=== PATIENT | male | born 1945 | race Caucasian/White ===

== ENCOUNTER 2019-10-14 14:04 | IRF | payer MEDICARE, OTHER, SELFPAY ==
--- NOTE | ~2019-10-14 | XR_ITS ---
EXAMINATION: XR barium swallow modified EXAM DATE: 10/27/2019 11:14 INDICATION: Dysphagia. TECHNIQUE: Modified barium esophagram was performed by myself to administered fluoroscopy, in conjun ction with speech pathologist who administered barium in varying consistencies as per speech patholog ist documentation. This was recorded on tape. The DAP for this procedure was 1.1 Gycm2. FINDINGS: Oral stage: Adequate function. Pharyngeal phase: Small sinus residual.. Laryngeal penetration: None. Aspiration: None. Laryngeal sensitivity: Present. IMPRESSION: Patient tolerated oral feedings in the upright position. Please refer to speech patholo gist findings and specific feeding recommendations. Reviewed, dictated and finalized at location A. IMPRESSION: Patient tolerated oral feedings in the upright position. Please r efer to speech pathologist findings and specific feeding recommendations.
--- NOTE | ~2019-10-14 | XR_ITS ---
EXAMINATION: XR chest 1V portable 10/19/2019 19:04 INDICATION: Shortness of breath PROCEDURE: AP portable chest COMPARISON: No prior studies for comparison. FINDINGS: The lungs are clear. The cardiomediastinal silhouette is within normal limits. There are no pleural effusions. There is no pneumothorax suspected. IMPRESSION: 1: NO ACUTE CARDIOPULMONARY DISEASE. Reviewed, dictated and finalized at location A.
--- NOTE | ~2019-10-14 | CT_ITS ---
EXAMINATION: CT soft tissue neck wo con DATE: 10/18/2019 15:01 INDICATION: Dysphagia. TECHNIQUE: Computed tomography (CT) of the neck was performed without intravenous contrast. Automated exposure control and iterative reconstruction technique were employed. The dose-length product was 5 97.20 mGy-cm. COMPARISON: None FINDINGS: There is ectasia of ascending aorta measuring 4.1 cm. There are no pathologically enlarged lymph nodes. The pharynx and larynx are unremarkable. There is mild mucosal thickening in the paranas al sinuses. The mastoid air cells are normal. The orbits are normal. There is extensive dental diseas e. There is severe cervical spondylosis. IMPRESSION: 1. Extensive dental disease. Reviewed, dictated and finalized at location A.
--- NOTE | ~2019-10-14 | XR_ITS ---
EXAMINATION: XR abdomen/kub 1V EXAM DATE: 10/14/2019 17:08 INDICATION: Check PEG tube placement. TECHNIQUE: Frontal projection(s) of the abdomen for interpretation. There is no prior study for rafael bishop. FINDINGS: PEG tube catheter and balloon anchor projects over the spine just left of midline. There i s contrast within the colon. Nonobstructive bowel gas pattern. There are cholecystectomy clips. Moder ate to severe thoracolumbar spondylosis. There is no organomegaly. IMPRESSION: PEG tube projecting over expected location. If this was recently replaced, ordering exam ination with contrast injected through tube could be obtained to confirm intragastric position. Reviewed, dictated and finalized at location A. ONE BUTTON PASTER IMPRESSION: PEG tube projecting over expected location. If this was recently r eplaced, ordering examination with contrast injected through tube could be obta ined to confirm intragastric position.
--- NOTE | ~2019-10-14 | XR_ITS ---
XR abdomen/kub 1V 10/19/2019 19:04 INDICATION: Nausea TECHNIQUE: KUB COMPARISON: 10/14/2019 FINDINGS: Bowel gas pattern is normal. Moderate lumbar spondylosis. There is a gastric tube in the le ft upper abdomen. There are cholecystectomy clips. There is no evidence of free air, mass, organomega ly, ascites or obstruction. No abnormal calculi are seen. The bones appear intact. Moderate lumbar spondylosis. IMPRESSION: 1: No acute abdominal abnormality identified. Reviewed, dictated and finalized at location A.
--- NOTE | 2019-10-14 15:49 | ADMGEN ---
This patient, Moreno Sanchez, was admitted to [facility] Room 220-02. Patient/family oriented to hospital policies and general routines including ID bracelet, bed and alarms, visiting hours, pain management, procedures, bathroom and other care routines, personal items, smoking policy, room service/diet, and visiting hours. Valuables list has been completed. Information on how to activate the Rapid Response Team has been discussed. Patient/Family are encouraged to report perceived risks to care and to ask questions if they do not understand what they are told or what they should do.
[2019-10-14 16:23] VITALS: BP 140/54; PULSE 54; RESP 18; TEMP 37.2; O2SAT 99
[2019-10-14 16:24] VITALS: BMI 29.0
[2019-10-14] MEDS: LANSOPRAZOLE ORAL SUSP 30 MG/10 ML ORAL.SUSP FEED TUBE (20:18)
[2019-10-14] MEDS: HEPARIN SODIUM 5,000 UNITS/ML VIAL 5000 UNITS SUB-Q (20:19)
[2019-10-14 22:00] VITALS: BP 134/61; PULSE 56; RESP 18; TEMP 36.8; O2SAT 98
--- NOTE | 2019-10-15 03:26 | PC.NURSE ---
Daylight Savings Time For Daylight Savings Time Ending in the Fall - Clocks are moved back. For Daylight Savings Time Beginning in the Spring - Clocks are moved ahead. For [facility], the time of change occurs at 0200 hrs. Time is taken from the tower observer. This entry on the patient's chart recognizes the change in time reflected during documentation. Example: 2 entries for vital signs may be charted for 0200 hrs. Daylight Savings Time For Daylight Savings Time Ending in the Fall - Clocks are moved back. For Daylight Savings Time Beginning in the Spring - Clocks are moved ahead. For [facility], the time of change occurs at 0200 hrs. Time is taken from the tower observer. This entry on the patient's chart recognizes the change in time reflected during documentation. Example: 2 entries for vital signs may be charted for 0200 hrs.
[2019-10-15 05:11] LABS: Basophils Percent Auto 0.5 % (0.2-1.2); Eosinophils Absolute Auto 0.6 K/mm3 (0-0.3); Eosinophils Percent Auto 7.3 % (0-4.4); Hematocrit 39.9 % (42.0-52.0); Hemoglobin 12.8 g/dL (14.0-18.0); Immature Granulocyte Absolute 0.03 K/mm3 (0.00-0.031); Immature Granulocyte Percent A 0.4 % (0-0.5); Lymphocytes Percent Auto 24.1 % (18.3-44.2); Mean Corpuscular HGB Conc 32.1 g/dl (32-36); Mean Corpuscular Hemoglobin 29.4 pg (26-34); Mean Corpuscular Volume 91.5 fl (80-100); Mean Platelet Volume 10.5 fl (7.4-10.4); Monocytes Percent Auto 11.9 % (2.6-8.5); Neutrophils Absolute Auto 4.6 K/mm3 (1.3-6.7); Neutrophils Percent Auto 55.8 % (45.5-73.1); Platelet Count Result 238 k/mm3 (150-375); Red Blood Count 4.36 M/mm3 (4.6-6.20); Red Cell Distribution Width 13.3 % (11.5-14.5); White Blood Count 8.3 K/mm3 (4.5-10.0)
[2019-10-15 05:20] LABS: Blood Urea Nitrogen 11 mg/dL (9-20); Calcium 8.5 mg/dL (8.4-10.2); Carbon Dioxide 33 mmol/L (22-30); Chloride 102 mmol/L (98-107); Estimated CRCL calculation 81 ml/min; Estimated Glomerular Filt Rate > 60; Glucose 96 mg/dL (75-110); Potassium 3.7 mmol/L (3.4-5.0); Sodium 141 mmol/L (137-145)
[2019-10-15] MEDS: HEPARIN SODIUM 5,000 UNITS/ML VIAL 5000 UNITS SUB-Q ×3 (05:40→22:55)
[2019-10-15 06:00] VITALS: BP 123/62; PULSE 56; RESP 17; TEMP 36.3; O2SAT 93
[2019-10-15 07:04] LABS: Glucose Point of Care 118 (65-105)
[2019-10-15] MEDS: DOCUSATE SODIUM LIQ 100 MG/10 ML UDC FEED TUBE (08:58)
[2019-10-15] MEDS: EZETIMIBE 10 MG TABLET FEED TUBE (08:58)
[2019-10-15] MEDS: CLOPIDOGREL BISULFATE 75 MG TABLET FEED TUBE (08:58)
[2019-10-15] MEDS: ASPIRIN 81 MG CHEWABLE TABLET FEED TUBE (08:58)
[2019-10-15] MEDS: polyethylene glycoL 3350 17 GM POWD.PACK FEED TUBE (08:59)
[2019-10-15] MEDS: MULTIVIT W/ IRON, MINERALS 15 ML LIQUID (*BKC) FEED TUBE (08:59)
[2019-10-15] MEDS: lisinopriL 10 MG TABLET FEED TUBE (08:59)
[2019-10-15] MEDS: LANSOPRAZOLE ORAL SUSP 30 MG/10 ML ORAL.SUSP FEED TUBE ×2 (09:00→18:36)
--- NOTE | 2019-10-15 10:00 | WPDREHABHP ---
H&P: HPI History of Present Illness Chief complaint: CVA Narrative: Moreno Sanchez is a 74 year old male HISTORY OF PRESENT ILLNESS: The patient's primary rehab impairment category is stroke The etiologic diagnosis is right-sided cerebrovascular accident. I saw this patient [id number] on October 15, 2019 at 10:00 a.m. in the morning The patient is a 74-year-old white male with a past medical history of hyperlipidemia, atrial fibrillation, coronary artery disease, prior [place], prior stroke with residual left-sided weakness, and hypertension who presented to [facility] on September 27, 2019 with a 3 day history of difficulty swallowing. CT of the head was negative. CT angiogram of the head and neck showed occlusion of the distal right vertebral artery, mild atherosclerotic changes without significant stenosis in the right common carotid as well as bilateral internal carotid arteries. A barium swallow revealed large residual volume within the vallecula with semi solid consistency, a deep laryngeal penetration at the level of the vocal cords with thin liquids concerning for silent aspiration. Carotid ultrasound showed less than 50% stenosis of the internal carotid arteries. Brain MRI showed compromised the diffusion-weighted images. NAWAF was ordered but does since the patient's director labor standards is in service on [facility] the patient was transferred there. TTE revealed no thrombus and no shunt. He underwent PEG tube placement on October 09, 2019 and remains NPO. Neurology reported that moderate aortic atherosclerotic is likely the source of the new CVA even though the MRI was negative. Patient has a history of a prior MRI negative stroke. His hospitalization has been complicated by several comorbid conditions. Neurologist at the patient on new medication for hyperlipidemia a during this hospitalization said this new stroke card on prior statin therapy. The patient has persistent dysphagia requiring PEG tube placement and on October 08 currently he has at a goal and tolerating the tube feeding. During PEG tube placement it was discovered the patient had an ulcerated gastric polyp that was bleeding, the poly was removed and the pathology returned intra mucosal carcinoma. Oncology was consulted and deemed the patient not a candidate for surgical resection. Follow-up to be done in the future for possible and a week O Flick resection. His hypertension is currently controlled. He has persistent bradycardia and is currently on no rate control medications. Cardiology feels it is likely related to obstructive sleep apnea and recommend outpatient polysomnogram. Cardiology also consulted for heart failure with preserved ejection fraction and current treatment is lisinopril and p.r.n. Lasix. He has coronary artery disease at baseline and it is stable on aspirin Plavix Crestor and Zetia. He did experience severe protein calorie malnutrition for which it dietitian was consulted and proper tube feedings were recommended and put in place. Physical examination continues to reveal left-sided weakness dysphagia impaired balance decreased safety awareness and decreased gross motor controlled. DVT prophylaxis with subcutaneous heparin Therapy was initiated at the acute care facility and the patient transferred to us from [facility] in [place] on October 14, 2019 at which time this patient was examined this examiner in detail that will be October 14, 2019 and the 2nd examination was performed today October 15, 2019 the examination performed on October 14, 2019 was at 1:00 a.m. in the afternoon on FALLS OR SURGERIES: The patient has had no major surgeries in the 100 days prior to admission. They had no falls in the past year. They had no falls with injury in the past year. PAST MEDICAL HISTORY: hypercholesterolemia, atrial fibrillation, anginal pain, coronary artery disease, hypertension, gastroesophageal reflux disease, heart attack, transient isc
[2019-10-15 14:40] VITALS: BP 118/56; PULSE 63; RESP 16; TEMP 35.7; O2SAT 98
[2019-10-15] MEDS: ACETAMINOPHEN ELIXIR 325 MG/10.15 ML UDC 650 MG FEED TUBE (18:34)
[2019-10-15 21:24] VITALS: BP 125/54; PULSE 50; RESP 20; TEMP 36.3; O2SAT 96
[2019-10-16 06:00] VITALS: BP 118/65; PULSE 75; RESP 20; TEMP 36.3; O2SAT 98
[2019-10-16] MEDS: HEPARIN SODIUM 5,000 UNITS/ML VIAL 5000 UNITS SUB-Q ×3 (06:44→22:08)
[2019-10-16 07:17] LABS: Glucose Point of Care 116 (65-105)
[2019-10-16] MEDS: CLOPIDOGREL BISULFATE 75 MG TABLET FEED TUBE (08:51)
[2019-10-16] MEDS: ASPIRIN 81 MG CHEWABLE TABLET FEED TUBE (08:51)
[2019-10-16] MEDS: EZETIMIBE 10 MG TABLET FEED TUBE (08:51)
[2019-10-16] MEDS: LANSOPRAZOLE ORAL SUSP 30 MG/10 ML ORAL.SUSP FEED TUBE ×2 (08:52→22:08)
[2019-10-16] MEDS: MULTIVIT W/ IRON, MINERALS 15 ML LIQUID (*BKC) FEED TUBE (08:53)
[2019-10-16] MEDS: lisinopriL 10 MG TABLET FEED TUBE (08:53)
[2019-10-16] MEDS: ACETAMINOPHEN ELIXIR 325 MG/10.15 ML UDC 650 MG FEED TUBE ×2 (08:59→22:42)
--- NOTE | 2019-10-16 11:54 | PCPTNOTE ---
Moreno Sanchez was evaluated for a wheeled walker on 10/16/2019 by this physical therapist business assistant. The wheeled walker will resolve patient's mobility limitations and will be used for ADL's within the home. The patient can safely use the wheeled walker. ?The wheeled walker will resolve the patient?s mobility deficits, including de creased standing balance, decrease endurance and decreased left lower extremity strength.
[2019-10-16 14:00] VITALS: BP 133/75; PULSE 82; RESP 20; TEMP 36.6; O2SAT 96
[2019-10-16 14:07] VITALS: BMI 29.2
--- NOTE | 2019-10-16 15:00 | PCNSR ---
On 10/16/19, the student, Jenny Mckeon, provided care and completed [facility] documentation on this patient. I have reviewed the student's documentation and agree with the findings.
--- NOTE | 2019-10-16 16:38 | RPD ---
INDIVIDUALIZED PLAN OF CARE FOR Moreno Sanchez Brief Synthesis of Pre-Admission Screen, Post-Admission Evaluation and Therapy Evaluations: The patient presents to rehab with right cerebrovascular accident. Comorbidities include hypertension, moderate aortic atherosclerosis, oropharyngeal dysphagia requiring PEG tube placement 10/09/2019, hyperlipidemia, high grade dysplastic gastric polyp, coronary artery disease, gastroesophageal reflux disease, severe protein calorie malnutrition, hypernatremia, benign prostatic hypertrophy, bradycardia. The patient needs physician monitoring and treatment of hypertension, malnutrition, monitoring for adverse reactions to new medications, monitoring for infection, bradycardia and pain control. The patient requires nursing services for frequent neuro checks, anticoagulation therapy, medication management and education, pressure relief and skin care management, monitoring of labs, monitoring vital signs specifically for persistent bradycardia, and fall/safety precautions. Deficits include:ADLs, Balance, Cognition, Endurance, Mobility, Pain Management, ROM, Safety, Strength, Swallowing, Transfers Reconciliation Clerk/Case Management for: Discharge Planning and Patient/Family Counseling Physical Therapy: 5 days per week for 60 minutes. Treatments may include: Therapeutic Exercise, Gait Training, Neuromuscular Re-education, Transfer Training, Community Reintegration, Bed Mobility, Patient/Family Education, Wheelchair Mobility Group Therapy/Concurrent Therapy Rationales: -Improve attention span during functional activities in a distracted environment. -Enhance problem solving and/or adequate judgment skills during functional activities in a distracted environment. -Promote increased safety awareness in a distracted environment to reduce fall risk with functional tasks, transfers, and ambulation to allow a more safe, self-sufficient return to the home environment. -Improve dynamic balance skills to promote safety and independence with functional activities in a distracted environment for maximum gain. Occupational Therapy: 5 days per week for 60 minutes. Treatments may include: Therapeutic Exercise, Therapeutic Activity, Cognitive Training, Self-Care Transfer Training, Community Reintegration, Home Management, Patient/Family Education, Wheelchair Mobility Training, Energy Conservation Training Group Therapy/Concurrent Therapy Rationales: -Allow therapist to observe and teach generalization and carry-over of skills learned in individual therapy. -Enhance problem solving and sequencing skills during therapeutic activities in a distracted environment. -Promote increased safety awareness in a realistic setting to reduce fall risk with functional tasks due to visual and verbal distractions. -Increase functional level with ADLs, ADL transfers and use of adaptive equipment through therapeutic activities with others while promoting safety to allow a more safe, self-sufficient return home. Speech Therapy: 5 days per week for 60 minutes. Treatments may include: Dysphasia Therapy, Speech/Language/Communication Therapy, Cognitive Training, Patient/Family Education Group Therapy/Concurrent Therapy - Rationale: -Allow therapist to observe and teach generalization and carry-over of skills learned in individual therapy. -Improve comprehension skills with complex or abstract ideas through discussion in a realistic setting. -Enhance problem solving skills with complex issues during activities in a distracted environment. -Promote increased memory skills and concentration in a distracted environment for a safe transition home. -Improve attention and focus with language/communication skills in a realistic and supportive therapeutic setting. -Allow for practice of expression of basic needs and ideas through functional activities with others. Medical Prognosis: Good Anticipated Length of Stay: 12 days Rehab Goals: Eating Goal: 02-Substantial/Maximal Ass
[2019-10-16 22:00] VITALS: BP 140/56; PULSE 54; RESP 18; TEMP 36; O2SAT 98
[2019-10-17] MEDS: HEPARIN SODIUM 5,000 UNITS/ML VIAL 5000 UNITS SUB-Q ×3 (05:48→22:31)
[2019-10-17 06:00] VITALS: BP 142/66; PULSE 59; RESP 18; TEMP 36.6; O2SAT 99
[2019-10-17 06:38] LABS: Glucose Point of Care 121 (65-105)
[2019-10-17 10:38] VITALS: BP 128/62; PULSE 57; O2SAT 98
[2019-10-17] MEDS: CLOPIDOGREL BISULFATE 75 MG TABLET FEED TUBE (10:39)
[2019-10-17] MEDS: EZETIMIBE 10 MG TABLET FEED TUBE (10:39)
[2019-10-17] MEDS: ASPIRIN 81 MG CHEWABLE TABLET FEED TUBE (10:39)
[2019-10-17] MEDS: lisinopriL 10 MG TABLET FEED TUBE (10:39)
[2019-10-17] MEDS: MULTIVIT W/ IRON, MINERALS 15 ML LIQUID (*BKC) FEED TUBE (10:40)
[2019-10-17] MEDS: LANSOPRAZOLE ORAL SUSP 30 MG/10 ML ORAL.SUSP FEED TUBE ×2 (11:03→22:31)
--- NOTE | 2019-10-17 11:59 | WPDNEURORHBP ---
Subjective Date/time seen: 10/17/19 11:59 Interval history: this 74-year-old gentleman is here with right hemispheric stroke which has left him with the left hemiparesis and he would require an AFO for better ambulation patient has significant dysphagia and is being fed through the PEG tube which is functioning fairly well and it has been changed from continuous feeding to bolus feeding which he is able to tolerate quite a bit patient by was here during the team conference and her questions were answered. We will use vital stimulation for his dysphagia and the order has been given Patient denies any headache nausea vomiting chest pain or shortness breath no new complaints of any neurological findings his quite motivated and ready to work with the PT and OT Review of Systems Review of Systems: All systems reviewed & are unremarkable except as noted in HPI and below Functional Status Ambulation Ability Ability to Ambulate 10 Feet: Minimum Assistance X 2 Ability to Ambulate 50 Feet With 2 Turns: Minimum Assistance X 1 Ambulation Assistive Devices: Walker, Wheeled Exam Const: General: comfortable and no acute distress HENMT: General nose exam: Normal nares present Mouth: Yes moist mucous membranes Other: patient has dysphagia and has PEG tube Eyes: General: appearance normal, both eyes and all related structures Neck: Neck: supple and no JVD Resp: Effort & Inspection: normal respiratory effort Auscultation: clear to auscultation bilaterally Cardio: Rate: regular rate Rhythm: regular rhythm GI: GI Palp: Yes Soft to palpation Auscultation: normal bowel sounds Skin: General skin exam: normal color and no rashes or lesions noted Neuro: Other: patient is awake and alert will oriented to time place and person has normal speech and language functions he does have evidence of right-sided vocal cord and right-sided palatal weakness along with left-sided hemiparesis which is worse than the previous stroke from which he recuperated quite well a few years ago is still needing quite a bit of assistance in the activities of daily living Extrem: General: normal to inspection Psych: Mental Status: mental status grossly normal Objective Data Vital Signs Vital Signs: Vital Signs - 24 hr 10/16/19 14:00 10/16/19 22:00 10/17/19 06:00 Temperature 36.6 C 36.0 C L 36.6 C Pulse Rate 82 54 L 59 L Respiratory Rate 20 18 18 Blood Pressure 133/75 140/56 L 142/66 H Pulse Oximetry 96 98 99 Intake/Output Intake/Output: Intake & Output 10/14/19 10/15/19 10/16/19 10/17/19 22:59 23:59 23:59 23:59 Intake Total Output Total Balance Meds/Results Medications: Active Medications Generic Name Dose Route Start Last Admin Trade Name Freq PRN Reason Stop Dose Admin Acetaminophen 650 mg 10/14/19 15:03 10/16/19 22:42 Tylenol Elixir FEED TUBE 650 mg Q6H PRN Administration Pain (Scale Score 1-3) Aspirin 81 mg 10/15/19 09:00 10/17/19 10:39 Aspirin Chewable FEED TUBE 81 mg DAILY MONALISA Administration Clopidogrel Bisulfate 75 mg 10/15/19 09:00 10/17/19 10:39 Plavix FEED TUBE 75 mg DAILY MONALISA Administration Docusate Sodium 100 mg 10/15/19 18:45 Colace Liquid FEED TUBE Q12HR PRN Constipation Ezetimibe 10 mg 10/15/19 09:00 10/17/19 10:39 Zetia FEED TUBE 10 mg DAILY MONALISA Administration Heparin Sodium (Porcine) 5,000 units 10/14/19 22:00 10/17/19 05:48 Heparin Sodium SUB-Q 5,000 units Q8HR MONALISA Administration Lansoprazole 30 mg 10/14/19 21:00 10/17/19 11:03 Prevacid Susp FEED TUBE 30 mg Q12HR MONALISA Administration Lisinopril 10 mg 10/15/19 09:00 10/17/19 10:39 Prinivil FEED TUBE 10 mg DAILY MONALISA Administration Multivitamins/Minerals 15 ml 10/15/19 09:00 10/17/19 10:40 Centrum Liquid FEED TUBE 15 ml QAM MONALISA Administration Nitroglycerin 0.4 mg 10/14/19 15:32 Nitrostat Subl 0.4 Mg (1/150) SUBLINGUAL Q5MIN PRN
--- NOTE | 2019-10-17 12:40 | PCDIET ---
Nutrition Follow-Up Complete: Swallowing difficulty related to CVA as evidenced by dx of dysphagia at previous hospital Pt will tolerate diet order upon advancement Goal met. Pt tolerating bolus feedings. Nutrition recommendation: Continuation of Bolus feedings of Jevity 1.5 - 250mls Q4hrs with 150mls water flushes Q4hrs Last recorded weight is 90.5 kg. Bowel Motility: +BM 10/15 Labs Reviewed:POC Cap Glu (121) Meds Noted:Plavix, Colace Liquid, Heparin Na, Prevacid, multivitamin, Zetia Additional Notes: Pt has slight upset stomach but states this has been present for several days. Is tolerating bolus feedings well; 25mls residuals recorded today. Had a little blood in pants earlier today. Nurse aware. Will provide stroke MNT ed prior to discharge. Will monitor tolerance and labs. Follow up T/F
[2019-10-17 14:00] VITALS: BP 146/53; PULSE 59; RESP 16; TEMP 36.2; O2SAT 98
--- NOTE | 2019-10-17 14:18 | PCNSR ---
On 10/17/19, the student, Jenny Mckeon, provided care and completed [facility] documentation on this patient. I have reviewed the student's documentation and agree with the findings.
[2019-10-17 22:00] VITALS: BP 123/56; PULSE 65; RESP 18; TEMP 36.7; O2SAT 100
[2019-10-18 06:00] VITALS: BP 143/64; PULSE 65; RESP 18; TEMP 36.4; O2SAT 94
[2019-10-18] MEDS: HEPARIN SODIUM 5,000 UNITS/ML VIAL 5000 UNITS SUB-Q ×3 (06:42→22:33)
[2019-10-18 07:16] LABS: Glucose Point of Care 102 (65-105)
[2019-10-18] MEDS: LANSOPRAZOLE ORAL SUSP 30 MG/10 ML ORAL.SUSP FEED TUBE ×2 (08:59→22:34)
[2019-10-18] MEDS: CLOPIDOGREL BISULFATE 75 MG TABLET FEED TUBE (09:01)
[2019-10-18] MEDS: ASPIRIN 81 MG CHEWABLE TABLET FEED TUBE (09:01)
[2019-10-18] MEDS: lisinopriL 10 MG TABLET FEED TUBE (09:02)
[2019-10-18] MEDS: MULTIVIT W/ IRON, MINERALS 15 ML LIQUID (*BKC) FEED TUBE (09:02)
[2019-10-18] MEDS: EZETIMIBE 10 MG TABLET FEED TUBE (09:02)
--- NOTE | 2019-10-18 12:41 | WPDNEURORHBP ---
Subjective Date/time seen: 10/18/19 12:41 Interval history: this is a 74-year-old gentleman with a history of stroke which has affected predominantly his swallowing with dysphagia and superimposed left-sided hemiparesis he is complaining of loss of sleep as has been disturbed by the attending nurses and the other personnel overnight this was discussed in detail and we will look into it so that he can get a decent night's sleep The patient denies any headache nausea vomiting chest pain or shortness of breath fever chills or sore throat his PEG tube is functioning well Review of Systems Review of Systems: All systems reviewed & are unremarkable except as noted in HPI and below Functional Status Ambulation Ability Ability to Ambulate 10 Feet: Minimum Assistance X 1 Ability to Ambulate 50 Feet With 2 Turns: Minimum Assistance X 1 Ambulation Assistive Devices: Walker, Wheeled Exam Const: General: comfortable and no acute distress HENMT: General nose exam: Normal nares present Mouth: Yes moist mucous membranes Other: the patient does have palatal weakness on the right side and has significant dysphagia Eyes: General: appearance normal, both eyes and all related structures Neck: Neck: supple and no JVD Resp: Effort & Inspection: normal respiratory effort Auscultation: clear to auscultation bilaterally Cardio: Rate: regular rate Rhythm: regular rhythm GI: GI Palp: Yes Soft to palpation Auscultation: normal bowel sounds Skin: General skin exam: normal color and no rashes or lesions noted Neuro: Other: patient is awake and alert will orient to time place and person is speech language functions are normal he has significant dysphagia and periodically has to spit out his saliva left side is improved slowly there are no neurological findings Extrem: General: normal to inspection Psych: Mental Status: mental status grossly normal Objective Data Vital Signs Vital Signs: Vital Signs - 24 hr 10/17/19 14:00 10/17/19 22:00 10/18/19 06:00 Temperature 36.2 C L 36.7 C 36.4 C L Pulse Rate 59 L 65 65 Respiratory Rate 16 18 18 Blood Pressure 146/53 H 123/56 L 143/64 H Pulse Oximetry 98 100 94 Intake/Output Intake/Output: Intake & Output 10/15/19 10/16/19 10/17/19 10/18/19 23:59 23:59 23:59 23:59 Intake Total 1320 1320 Output Total 800 Balance 1320 520 Meds/Results Medications: Active Medications Generic Name Dose Route Start Last Admin Trade Name Freq PRN Reason Stop Dose Admin Acetaminophen 650 mg 10/14/19 15:03 10/16/19 22:42 Tylenol Elixir FEED TUBE 650 mg Q6H PRN Administration Pain (Scale Score 1-3) Aspirin 81 mg 10/15/19 09:00 10/18/19 09:01 Aspirin Chewable FEED TUBE 81 mg DAILY MONALISA Administration Clopidogrel Bisulfate 75 mg 10/15/19 09:00 10/18/19 09:01 Plavix FEED TUBE 75 mg DAILY MONALISA Administration Docusate Sodium 100 mg 10/15/19 18:45 Colace Liquid FEED TUBE Q12HR PRN Constipation Ezetimibe 10 mg 10/15/19 09:00 10/18/19 09:02 Zetia FEED TUBE 10 mg DAILY MONALISA Administration Emollient Ointment 1 applic 10/17/19 13:35 10/18/19 09:01 Vaseline TOPICAL 1 applic PRN PRN Administration Dry Lips Heparin Sodium (Porcine) 5,000 units 10/14/19 22:00 10/18/19 06:42 Heparin Sodium SUB-Q 5,000 units Q8HR MONALISA Administration Lansoprazole 30 mg 10/14/19 21:00 10/18/19 08:59 Prevacid Susp FEED TUBE 30 mg Q12HR MONALISA Administration Lisinopril 10 mg 10/15/19 09:00 10/18/19 09:02 Prinivil FEED TUBE 10 mg DAILY MONALISA Administration Multivitamins/Minerals 15 ml 10/15/19 09:00 10/18/19 09:02 Centrum Liquid FEED TUBE 15 ml QAM MONALISA Administration Nitroglycerin 0.4 mg 10/14/19 15:32 Nitrostat Subl 0.4 Mg (1/150) SUBLINGUAL Q5MIN PRN Chest Pain Phenol 1 spray 10/17/19 11:16 Chloraseptic [place] MUCOUS MEM PRN PRN Sore Throat Polyethylene Glycol 17 gm
[2019-10-18 14:00] VITALS: BP 136/60; PULSE 68; RESP 18; TEMP 36.1; O2SAT 96
[2019-10-18 22:00] VITALS: BP 136/57; PULSE 64; RESP 18; TEMP 37.3; O2SAT 97
--- NOTE | 2019-10-19 05:22 | PC.NURSE ---
set up Yankeur suction at the bedside for patient. coughing up alot of phlegm. patient using yankeaur. will continue to monitor.
[2019-10-19 06:00] VITALS: BP 142/76; PULSE 74; RESP 22; TEMP 37; O2SAT 95
[2019-10-19] MEDS: HEPARIN SODIUM 5,000 UNITS/ML VIAL 5000 UNITS SUB-Q ×3 (07:07→22:00)
[2019-10-19 07:35] LABS: Glucose Point of Care 97 (65-105)
--- NOTE | 2019-10-19 07:51 | PCPTNOTE ---
SCOTT FARRELL completed an inpatient rehab wheelchair evaluation on Moreno Sanchez on 10/19/2019. The patient is unable to safely and independently ambulate household distances due to their current impairments. Their diagnosis is CVA and their impairments include decreased strength, decreased endurance, decreased range of motion, decreased balance, lower extremity weakness, and ataxia. The patient's weight bearing status is weight-bearing as tolerated on the bilateral lower legs. The patient demonstrates significant functional mobility limitations that impair their ability to participate in mobility-related activities of daily living (MRADLs), including toileting, feeding, dressing, grooming, and bathing in the customary locations in the home. These limitations cannot be sufficiently resolved by the use of an appropriately fitted cane or walker. It is recommended that the patient utilize a wheelchair for functional mobility within the home in order to facilitate optimal safety, independence and participation in all MRADL's and adequately access their home environment on a regular basis. The patient's home provides adequate access between rooms, maneuvering space, and surfaces to accommodate the recommended wheelchair. The use of a wheelchair for functional mobility is strongly recommended and the patient is receptive to using the wheelchair. The use of this wheelchair will significantly improve the patient's ability to participate in MRADLS and the patient will use it on a regular basis in the home. This will facilitate optimal safety, independence, and participation. The patient has demonstrated sufficient physical and mental capabilities needed to safely propel a manual wheelchair that is provided in the home during a typical day. Recommended Wheelchair Frame: 18 by 18 Recommended Wheelchair Cushion:standard cushion Wheelchair Leg Recommendations: removable leg rests . Evaluating Therapist Date I agree with and certify that the above recommendation is medically necessary. Referring Physician Date I agree with and certify that the above recommendation is medically necessary. Referring Physician Date
--- NOTE | 2019-10-19 09:00 | WPDNEURORHBP ---
Subjective Date/time seen: October 19, 2019 at 9:00 a.m. 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 which has left him with the dysphagia needing packed use placement and also increased left-sided hemiparesis the patient is frustrated with the tube feeding and was having some discomfort for which a chest x-ray and the abdominal x-rays were performed yesterday and they are unrevealing he denies any headache nausea vomiting chest pain shortness of breath he does have phlegm or saliva which he suctioning quite well and that is keeping more comfortable Review of Systems Review of Systems: All systems reviewed & are unremarkable except as noted in HPI and below Functional Status Ambulation Ability Ability to Ambulate 10 Feet: Minimum Assistance X 1 Ability to Ambulate 50 Feet With 2 Turns: Contact Guard Ambulation Assistive Devices: Walker, Wheeled Exam Const: General: comfortable and no acute distress HENMT: General nose exam: Normal nares present Mouth: Yes moist mucous membranes Other: patient is suctioning is/ was saliva very well and the chest and abdomen are clean Eyes: General: appearance normal, both eyes and all related structures Neck: Neck: supple and no JVD Resp: Effort & Inspection: normal respiratory effort Auscultation: clear to auscultation bilaterally Cardio: Rate: regular rate Rhythm: regular rhythm GI: GI Palp: Yes Soft to palpation Auscultation: normal bowel sounds Skin: General skin exam: normal color and no rashes or lesions noted Neuro: Other: patient is awake alert well oriented time place and person is speech and language functions are normal cranial examination reveals left sided facial weakness and motor examination reveals moderate left-sided hemiparesis which is improving the main issue is the dysphagia needing the PICC tube placement Extrem: General: normal to inspection Psych: Mental Status: mental status grossly normal Objective Data Vital Signs Vital Signs: Vital Signs - 24 hr 10/19/19 14:00 10/19/19 22:00 10/20/19 06:00 Temperature 36.6 C 36.0 C L 36.2 C L Pulse Rate 86 58 L 65 Respiratory Rate 18 16 16 Blood Pressure 138/64 129/52 L 134/72 Pulse Oximetry 96 97 95 Intake/Output Intake/Output: Intake & Output 10/17/19 10/18/19 10/19/19 10/20/19 23:59 23:59 23:59 23:59 Intake Total 1320 1320 1200 Output Total 800 400 Balance 1320 520 800 Meds/Results Medications: Active Medications Generic Name Dose Route Start Last Admin Trade Name Freq PRN Reason Stop Dose Admin Acetaminophen 650 mg 10/14/19 15:03 10/16/19 22:42 Tylenol Elixir FEED TUBE 650 mg Q6H PRN Administration Pain (Scale Score 1-3) Aspirin 81 mg 10/15/19 09:00 10/19/19 10:02 Aspirin Chewable FEED TUBE 81 mg DAILY MONALISA Administration Clopidogrel Bisulfate 75 mg 10/15/19 09:00 10/19/19 10:02 Plavix FEED TUBE 75 mg DAILY MONALISA Administration Docusate Sodium 100 mg 10/15/19 18:45 Colace Liquid FEED TUBE Q12HR PRN Constipation Ezetimibe 10 mg 10/15/19 09:00 10/19/19 10:03 Zetia FEED TUBE 10 mg DAILY MONALISA Administration Emollient Ointment 1 applic 10/17/19 13:35 10/19/19 14:24 Vaseline TOPICAL 1 applic PRN PRN Administration Dry Lips Heparin Sodium (Porcine) 5,000 units 10/14/19 22:00 10/20/19 06:53 Heparin Sodium SUB-Q 5,000 units Q8HR MONALISA Administration Lansoprazole 30 mg 10/14/19 21:00 10/19/19 20:26 Prevacid Susp FEED TUBE 30 mg Q12HR MONALISA Administration Lisinopril 10 mg 10/15/19 09:00 10/19/19 10:03 Prinivil FEED TUBE 10 mg DAILY MONALISA Administration Multivitamins/Minerals 15 ml 10/15/19 09:00 10/19/19 14:25 Centrum Liquid FEED TUBE 15 ml QAM MONALISA Administration Nitroglycerin 0.4 mg 10/14/19 15:32 Nitrostat Subl 0.4 Mg (1/150) SUBLINGUAL Q5MIN PRN Chest Pain Phenol 1 spray 10/17/19 11:16 Chloraseptic
[2019-10-19] MEDS: CLOPIDOGREL BISULFATE 75 MG TABLET FEED TUBE (10:02)
[2019-10-19] MEDS: ASPIRIN 81 MG CHEWABLE TABLET FEED TUBE (10:02)
[2019-10-19] MEDS: LANSOPRAZOLE ORAL SUSP 30 MG/10 ML ORAL.SUSP FEED TUBE ×2 (10:03→20:26)
[2019-10-19] MEDS: EZETIMIBE 10 MG TABLET FEED TUBE (10:03)
[2019-10-19] MEDS: lisinopriL 10 MG TABLET FEED TUBE (10:03)
[2019-10-19 14:00] VITALS: BP 138/64; PULSE 86; RESP 18; TEMP 36.6; O2SAT 96
[2019-10-19] MEDS: MULTIVIT W/ IRON, MINERALS 15 ML LIQUID (*BKC) FEED TUBE (14:25)
--- NOTE | 2019-10-19 19:26 | PC.NURSE ---
Patient and c/o him having an upset stomach after tube feedings, but not after all of them with getting more information. Assured he was getting his prevacid bid. Also concerned he was aspirating his stomach contents (pt stating he feels like he is drowning at times and asking why he was having to suction so much. I attempted to explain about normal secretions and him not able to swallow. Lungs clear with auscultation and +BS in all 4 quadrants (although hyperactive). Spoke with Dr. Pradhan and he ordered cxr and abd xray, with both being negative. Left message for die press operator as well to see if we can change something to make him more comfortable. Will continue to monitor.
[2019-10-19 22:00] VITALS: BP 129/52; PULSE 58; RESP 16; TEMP 36; O2SAT 97
[2019-10-20 06:00] VITALS: BP 134/72; PULSE 65; RESP 16; TEMP 36.2; O2SAT 95
[2019-10-20 06:45] LABS: Glucose Point of Care 109 (65-105)
[2019-10-20] MEDS: HEPARIN SODIUM 5,000 UNITS/ML VIAL 5000 UNITS SUB-Q ×3 (06:53→22:02)
[2019-10-20] MEDS: ASPIRIN 81 MG CHEWABLE TABLET FEED TUBE (09:04)
[2019-10-20] MEDS: MULTIVIT W/ IRON, MINERALS 15 ML LIQUID (*BKC) FEED TUBE (09:04)
[2019-10-20] MEDS: lisinopriL 10 MG TABLET FEED TUBE (09:05)
[2019-10-20] MEDS: CLOPIDOGREL BISULFATE 75 MG TABLET FEED TUBE (09:05)
[2019-10-20] MEDS: EZETIMIBE 10 MG TABLET FEED TUBE (09:05)
[2019-10-20] MEDS: LANSOPRAZOLE ORAL SUSP 30 MG/10 ML ORAL.SUSP FEED TUBE ×2 (09:07→22:03)
--- NOTE | 2019-10-20 10:27 | WPDNEURORHBP ---
Subjective Date/time seen: 10/20/19 10:27 Interval history: this 74-year-old gentleman is here after having had what looks like more of a brainstem stroke with dysphagia needing the Parres to placement and feeding through it along with the left-sided hemiparesis superimposed on the previous left-sided hemiparesis from the previous stroke the patient has some choking spells yesterday although he is NPO and which prompted us to do a chest x-ray and abdominal x-ray and which are unremarkable likewise the CT of the soft tissue of the neck was also unremarkable particularly no evidence of abnormality in the pharynx and larynx Patient is more comfortable today is still has to suction his own saliva because of significant dysphagia left-sided hemiparesis is improving his demeanor and attitude is better his not that upset and a perturbed as before Patient denies any chest pain shortness of breath nausea vomiting headache fever chills sore throat or abdominal discomfort Review of Systems Review of Systems: All systems reviewed & are unremarkable except as noted in HPI and below Functional Status Ambulation Ability Ability to Ambulate 10 Feet: Minimum Assistance X 1 Ability to Ambulate 50 Feet With 2 Turns: Contact Guard Ambulation Assistive Devices: Walker, Wheeled Exam Const: General: comfortable and no acute distress HENMT: General nose exam: Normal nares present Mouth: Yes moist mucous membranes Eyes: General: appearance normal, both eyes and all related structures Neck: Neck: supple and no JVD Resp: Effort & Inspection: normal respiratory effort Auscultation: clear to auscultation bilaterally Cardio: Rate: regular rate Rhythm: regular rhythm GI: GI Palp: Yes Soft to palpation Auscultation: normal bowel sounds Skin: General skin exam: normal color and no rashes or lesions noted Neuro: Other: patient is awake alert well oriented time present person has normal speech language functions normal clean is a mention except to the flattening of the left nasal labial fold and moderate left-sided hemiparesis overall he is improving Extrem: General: normal to inspection Psych: Mental Status: mental status grossly normal Objective Data Vital Signs Vital Signs: Vital Signs - 24 hr 10/19/19 14:00 10/19/19 22:00 10/20/19 06:00 Temperature 36.6 C 36.0 C L 36.2 C L Pulse Rate 86 58 L 65 Respiratory Rate 18 16 16 Blood Pressure 138/64 129/52 L 134/72 Pulse Oximetry 96 97 95 Intake/Output Intake/Output: Intake & Output 10/17/19 10/18/19 10/19/19 10/20/19 23:59 23:59 23:59 23:59 Intake Total 1320 1320 1200 Output Total 800 400 Balance 1320 520 800 Meds/Results Medications: Active Medications Generic Name Dose Route Start Last Admin Trade Name Freq PRN Reason Stop Dose Admin Acetaminophen 650 mg 10/14/19 15:03 10/16/19 22:42 Tylenol Elixir FEED TUBE 650 mg Q6H PRN Administration Pain (Scale Score 1-3) Aspirin 81 mg 10/15/19 09:00 10/20/19 09:04 Aspirin Chewable FEED TUBE 81 mg DAILY MONALISA Administration Clopidogrel Bisulfate 75 mg 10/15/19 09:00 10/20/19 09:05 Plavix FEED TUBE 75 mg DAILY MONALISA Administration Docusate Sodium 100 mg 10/15/19 18:45 Colace Liquid FEED TUBE Q12HR PRN Constipation Ezetimibe 10 mg 10/15/19 09:00 10/20/19 09:05 Zetia FEED TUBE 10 mg DAILY MONALISA Administration Emollient Ointment 1 applic 10/17/19 13:35 10/19/19 14:24 Vaseline TOPICAL 1 applic PRN PRN Administration Dry Lips Heparin Sodium (Porcine) 5,000 units 10/14/19 22:00 10/20/19 06:53 Heparin Sodium SUB-Q 5,000 units Q8HR MONALISA Administration Lansoprazole 30 mg 10/14/19 21:00 10/20/19 09:07 Prevacid Susp FEED TUBE 30 mg Q12HR MONALISA Administration Lisinopril 10 mg 10/15/19 09:00 10/20/19 09:05 Prinivil FEED TUBE 10 mg DAILY MONALISA Administration Multivitamins/Minerals 15 ml 10/15/19 09:00 10/20/19 09:04 Valerie Paulson
--- NOTE | 2019-10-20 12:25 | PCDIET ---
Nutrition Follow-Up Complete: Swallowing difficulty related to CVA as evidenced by dx of dysphagia at previous hosptial Pt will tolerate diet order upon advancement Goal met. Pt has no residuals however sometimes experiencing nausea during therapy after feedings. Nutrition recommendation: Currently recommend continuation of Jevity 1.5 with 240ml bolus Q4hrs. If pt still experiences nausea and agrees, may recommend continuous nocturnal Jevity 1.5 feeding over 12hrs at goal rate 60mls/hr and 240ml bolus TID. Last recorded weight is 89.4 kg. Bowel Motility: Last recorded +BM 10/15 Labs Reviewed: POC Capillary Glu (109) Meds Noted:Prevacid, Prinivil, Colace, Zetia, Heparin Na Additional Notes: Received message from nurse last night stating pt feeling nauseous during therapy after feedings. Nocturnal feeding was mentioned. Discussed this with pt today. He said that he was told he could wait 1/2hr after feedings before starting therapy and given Prevacid to alleviate nausea. Pt said he wasn't feeling very nauseous today. However, nurse said no one had instructed/told pt this process, pt had come up with solution himself. Nurse noted that he received medicine 1hr prior to feeding which may have caused pt to feel less nauseous today. Nurse also said head of bed elevated for pt during feedings but sometimes pt will lie down flat despite having been told the importance of staying elevated. Will monitor tolerance and labs. Follow up T/F
--- NOTE | 2019-10-20 13:48 | PCNSR ---
On 10/20/19, the student, Jenny Mckeon, provided care and completed [facility] documentation on this patient. I have reviewed the student's documentation and agree with the findings.
[2019-10-20 14:00] VITALS: BP 124/63; PULSE 60; RESP 16; TEMP 36; O2SAT 100
[2019-10-20 20:45] VITALS: BP 147/62; PULSE 59; RESP 16; TEMP 35.9; O2SAT 97
[2019-10-20] MEDS: BACITRACIN OINTMENT 15 GM TUBE 1 APPLIC TOPICAL (22:00)
[2019-10-21] MEDS: HEPARIN SODIUM 5,000 UNITS/ML VIAL 5000 UNITS SUB-Q ×3 (05:56→21:53)
[2019-10-21 06:00] VITALS: BP 145/73; PULSE 60; RESP 18; TEMP 36.1; O2SAT 99
[2019-10-21 06:59] LABS: Glucose Point of Care 121 (65-105)
[2019-10-21] MEDS: ASPIRIN 81 MG CHEWABLE TABLET FEED TUBE (10:34)
[2019-10-21] MEDS: BACITRACIN OINTMENT 15 GM TUBE 1 APPLIC TOPICAL ×2 (10:34→21:53)
[2019-10-21] MEDS: lisinopriL 10 MG TABLET FEED TUBE (10:34)
[2019-10-21] MEDS: CLOPIDOGREL BISULFATE 75 MG TABLET FEED TUBE (10:34)
[2019-10-21] MEDS: EZETIMIBE 10 MG TABLET FEED TUBE (10:34)
[2019-10-21] MEDS: LANSOPRAZOLE ORAL SUSP 30 MG/10 ML ORAL.SUSP FEED TUBE ×2 (10:35→21:53)
[2019-10-21] MEDS: MULTIVIT W/ IRON, MINERALS 15 ML LIQUID (*BKC) FEED TUBE (10:59)
--- NOTE | 2019-10-21 11:49 | WPDNEURORHBP ---
Subjective Date/time seen: stable not c/o any thing charts and findings [id number]/14/20 11:49 Functional Status Ambulation Ability Ability to Ambulate 10 Feet: Minimum Assistance X 1 Ability to Ambulate 50 Feet With 2 Turns: Minimum Assistance X 1 Ambulation Assistive Devices: Walker, Wheeled Transfers Ability Ability to Transfer In/Out of Chair: Minimum Assistance X 1 Exam Const: General: comfortable and no acute distress Nutritional Appearance: average body habitus Orientation/consciousness: oriented to person and oriented to place Eyes: General: appearance normal, both eyes and all related structures Alignment and Position: alignment normal Periorbital: periorbital findings normal Eyelids: eyelids normal Conjunctivae: conjunctivae normal Sclera: sclerae normal Cornea: corneas normal Pupils: Equal, round and reactive pupils present EOM: EOMs intact bilaterally Direct Ophthalmoscopy: normal light reflex Neck: Neck: full ROM, no lymphadenopathy and supple Chest: Chest palpation & inspection: normal palpation of entire chest wall Resp: Effort & Inspection: normal respiratory effort Auscultation: clear to auscultation bilaterally Cardio: Rate: regular rate Rhythm: regular rhythm Skin: General skin exam: no rashes or lesions noted Neuro: General: oriented to person and oriented to place Cranial nerves: Yes Equal, round and reactive pupils present, Yes Bilaterally intact EOM present, Yes Normal facial strength present (assymetrical), Yes facial symmetry (asymmetrical), Yes Midline tongue present, Yes Normal hearing present, Yes Ability to bilaterally rotate head present and Yes Ability to bilaterally elevate shoulders present Motor exam (neuro): 5/5 motor strength present throughout (left hemiparesis) Deep tendon reflexes (DTR's): Right triceps reflex intensity grade: 1+, Left triceps reflex intensity grade: 2+, Rt Biceps (C5, C6): 1+, Left biceps reflex intensity grade: 2+, Right brachioradialis reflex intensity grade: 1+, Left brachioradialis reflex intensity grade: 2+, Right patellar reflex intensity grade: 1+, Left patellar reflex intensity grade: 2+, Right ankle reflex intensity grade: 1+ and Left ankle reflex intensity grade: 2+ Plantar Reflex Responses: downgoing: right and upgoing (positive Babinski): left Psych: Appearance: grossly normal Objective Data Vital Signs Vital Signs: Vital Signs - 24 hr 10/20/19 14:00 10/20/19 20:45 10/21/19 06:00 Temperature 36.0 C L 35.9 C L 36.1 C L Pulse Rate 60 59 L 60 Respiratory Rate 16 16 18 Blood Pressure 124/63 147/62 H 145/73 H Pulse Oximetry 100 97 99 Intake/Output Intake/Output: Intake & Output 10/18/19 10/19/19 10/20/19 10/21/19 23:59 23:59 23:59 23:59 Intake Total 1320 1200 1220 1220 Output Total 800 756 759 4877 Balance 520 800 295 220 Meds/Results Medications: Active Medications Generic Name Dose Route Start Last Admin Trade Name Freq PRN Reason Stop Dose Admin Acetaminophen 650 mg 10/14/19 15:03 10/16/19 22:42 Tylenol Elixir FEED TUBE 650 mg Q6H PRN Administration Pain (Scale Score 1-3) Aspirin 81 mg 10/15/19 09:00 10/21/19 10:34 Aspirin Chewable FEED TUBE 81 mg DAILY MONALISA Administration Bacitracin 1 applic 10/20/19 21:00 10/21/19 10:34 Bacitracin Oint 15 Gm TOPICAL 1 applic Q12HR MONALISA Administration Clopidogrel Bisulfate 75 mg 10/15/19 09:00 10/21/19 10:34 Plavix FEED TUBE 75 mg DAILY MONALISA Administration Docusate Sodium 100 mg 10/15/19 18:45 Colace Liquid FEED TUBE Q12HR PRN Constipation Ezetimibe 10 mg 10/15/19 09:00 10/21/19 10:34 Zetia FEED TUBE 10 mg DAILY MONALISA Administration Emollient Ointment 1 applic 10/17/19 13:35 10/20/19 22:00 Vaseline TOPICAL 1 applic PRN PRN Administration Dry Lips Heparin Sodium (Porcine) 5,000 units 10/14/19 22:00 10/21/19 05:56 Heparin Sodium SUB-Q 5,000 units Q8HR MONALISA Administration Lansoprazole
[2019-10-21 14:00] VITALS: BP 131/54; PULSE 60; RESP 20; TEMP 36.5; O2SAT 99
[2019-10-21 22:00] VITALS: BP 135/57; PULSE 61; RESP 14; TEMP 36.1; O2SAT 96
--- NOTE | 2019-10-22 04:37 | PC.NURSE ---
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
[2019-10-22] MEDS: HEPARIN SODIUM 5,000 UNITS/ML VIAL 5000 UNITS SUB-Q ×3 (05:46→21:50)
[2019-10-22 05:56] LABS: Glucose Point of Care 103 (65-105)
[2019-10-22 06:00] VITALS: BP 128/61; PULSE 65; RESP 18; TEMP 35.4; O2SAT 97
[2019-10-22 08:27] LABS: Basophils Absolute Auto 0.1 K/mm3 (0.0-0.1); Basophils Percent Auto 0.6 % (0.2-1.2); Eosinophils Absolute Auto 0.8 K/mm3 (0-0.3); Eosinophils Percent Auto 7.5 % (0-4.4); Hemoglobin 13.5 g/dL (14.0-18.0); Immature Granulocyte Absolute 0.04 K/mm3 (0.00-0.031); Immature Granulocyte Percent A 0.4 % (0-0.5); Lymphocytes Absolute Auto 2.01 K/mm3 (0.9-3.2); Mean Corpuscular HGB Conc 31.4 g/dl (32-36); Mean Corpuscular Hemoglobin 28.9 pg (26-34); Mean Corpuscular Volume 92.1 fl (80-100); Mean Platelet Volume 9.9 fl (7.4-10.4); Monocytes Absolute Auto 0.9 K/mm3 (0.1-0.6); Monocytes Percent Auto 9.3 % (2.6-8.5); Neutrophils Absolute Auto 6.3 K/mm3 (1.3-6.7); Neutrophils Percent Auto 62.2 % (45.5-73.1); Platelet Count Result 277 k/mm3 (150-375); Red Blood Count 4.67 M/mm3 (4.6-6.20); Red Cell Distribution Width 13.9 % (11.5-14.5); White Blood Count 10.1 K/mm3 (4.5-10.0)
[2019-10-22 08:38] LABS: Blood Urea Nitrogen 13 mg/dL (9-20); Calcium 9.1 mg/dL (8.4-10.2); Carbon Dioxide 31 mmol/L (22-30); Chloride 101 mmol/L (98-107); Estimated CRCL calculation 93 ml/min; Estimated Glomerular Filt Rate > 60; Glucose 123 mg/dL (75-110); Potassium 4.4 mmol/L (3.4-5.0); Sodium 137 mmol/L (137-145)
[2019-10-22] MEDS: LANSOPRAZOLE ORAL SUSP 30 MG/10 ML ORAL.SUSP FEED TUBE ×2 (09:51→21:50)
[2019-10-22] MEDS: ACETAMINOPHEN ELIXIR 325 MG/10.15 ML UDC 650 MG FEED TUBE ×2 (09:52→15:04)
[2019-10-22] MEDS: BACITRACIN OINTMENT 15 GM TUBE 1 APPLIC TOPICAL ×2 (09:52→21:50)
[2019-10-22] MEDS: ASPIRIN 81 MG CHEWABLE TABLET FEED TUBE (09:52)
[2019-10-22] MEDS: MULTIVIT W/ IRON, MINERALS 15 ML LIQUID (*BKC) FEED TUBE (09:53)
[2019-10-22] MEDS: lisinopriL 10 MG TABLET FEED TUBE (09:53)
[2019-10-22] MEDS: CLOPIDOGREL BISULFATE 75 MG TABLET FEED TUBE (09:53)
[2019-10-22] MEDS: EZETIMIBE 10 MG TABLET FEED TUBE (09:53)
--- NOTE | 2019-10-22 11:52 | WPDNEURORHBP ---
Subjective Date/time seen: 10/22/19 11:52 Review of Systems Review of Systems: All systems reviewed & are unremarkable except as noted in HPI and below Functional Status Ambulation Ability Ability to Ambulate 10 Feet: Minimum Assistance X 1 Ability to Ambulate 50 Feet With 2 Turns: Minimum Assistance X 1 Ambulation Assistive Devices: Walker, Wheeled Transfers Ability Ability to Transfer In/Out of Chair: Minimum Assistance X 1 Exam Const: General: cooperative, comfortable and no acute distress Nutritional Appearance: average body habitus Orientation/consciousness: patient oriented x3 Eyes: General: appearance normal, both eyes and all related structures Alignment and Position: alignment normal Periorbital: periorbital findings normal Eyelids: eyelids normal Conjunctivae: conjunctivae normal Sclera: sclerae normal Cornea: corneas normal Pupils: Equal, round and reactive pupils present EOM: EOMs intact bilaterally Neck: Neck: full ROM Resp: Effort & Inspection: normal respiratory effort and able to speak in complete sentences Cardio: Rate: regular rate Rhythm: regular rhythm GI: Auscultation: normal bowel sounds Skin: General skin exam: no rashes or lesions noted Neuro: General: patient oriented x3 and moves all extremities Cranial nerves: Yes Equal, round and reactive pupils present, Yes Nystagmus not present, Yes Midline tongue present, Yes Normal gag reflex present, Yes Symmetric palate elevation present, Yes Normal hearing present, Yes Ability to bilaterally rotate head present and Yes Ability to bilaterally elevate shoulders present Cognition (Neuro): normal cognition Speech: normal speech Gait exam (Neuro): Unable to assess gait (hemiparetic) Deep tendon reflexes (DTR's): Right triceps reflex intensity grade: 1+, Left triceps reflex intensity grade: 2+, Rt Biceps (C5, C6): 1+, Left biceps reflex intensity grade: 2+, Right brachioradialis reflex intensity grade: 1+, Left brachioradialis reflex intensity grade: 2+, Right patellar reflex intensity grade: 1+, Left patellar reflex intensity grade: 2+, Right ankle reflex intensity grade: 1+ and Left ankle reflex intensity grade: 2+ Plantar Reflex Responses: downgoing: right and upgoing (positive Babinski): left Psych: Appearance: grossly normal Objective Data Vital Signs Vital Signs: Vital Signs - 24 hr 10/21/19 14:00 10/21/19 22:00 10/22/19 06:00 Temperature 36.5 C 36.1 C L 35.4 C L Pulse Rate 60 61 65 Respiratory Rate 20 14 18 Blood Pressure 131/54 L 135/57 L 128/61 Pulse Oximetry 99 96 97 Intake/Output Intake/Output: Intake & Output 10/19/19 10/20/19 10/21/19 10/22/19 23:59 23:59 23:59 23:59 Intake Total 1200 1220 2440 1170 Output Total 936 253 8877 900 Balance 800 295 940 270 Meds/Results Medications: Active Medications Generic Name Dose Route Start Last Admin Trade Name Freq PRN Reason Stop Dose Admin Acetaminophen 650 mg 10/14/19 15:03 10/22/19 09:52 Tylenol Elixir FEED TUBE 650 mg Q6H PRN Administration Pain (Scale Score 1-3) Aspirin 81 mg 10/15/19 09:00 10/22/19 09:52 Aspirin Chewable FEED TUBE 81 mg DAILY MONALISA Administration Bacitracin 1 applic 10/20/19 21:00 10/22/19 09:52 Bacitracin Oint 15 Gm TOPICAL 1 applic Q12HR MONALISA Administration Clopidogrel Bisulfate 75 mg 10/15/19 09:00 10/22/19 09:53 Plavix FEED TUBE 75 mg DAILY MONALISA Administration Docusate Sodium 100 mg 10/15/19 18:45 Colace Liquid FEED TUBE Q12HR PRN Constipation Ezetimibe 10 mg 10/15/19 09:00 10/22/19 09:53 Zetia FEED TUBE 10 mg DAILY MONALISA Administration Emollient Ointment 1 applic 10/17/19 13:35 10/20/19 22:00 Vaseline TOPICAL 1 applic PRN PRN Administration Dry Lips Heparin Sodium (Porcine) 5,000 units 10/14/19 22:00 10/22/19 05:46 Heparin Sodium SUB-Q 5,000 units Q8HR MONALISA Administration Lansoprazole 30 mg 10/14/19 21:00 10/22/19 09:51 Prevacid Mon
[2019-10-22 14:00] VITALS: BP 129/53; PULSE 61; RESP 18; TEMP 35.9; O2SAT 100
[2019-10-22 22:00] VITALS: BP 132/64; PULSE 86; RESP 18; TEMP 36.5; O2SAT 97
[2019-10-23 06:00] VITALS: BP 156/72; PULSE 78; RESP 18; TEMP 36.2; O2SAT 96
[2019-10-23] MEDS: HEPARIN SODIUM 5,000 UNITS/ML VIAL 5000 UNITS SUB-Q ×3 (06:04→21:55)
[2019-10-23 06:41] LABS: Glucose Point of Care 91 (65-105)
[2019-10-23] MEDS: ASPIRIN 81 MG CHEWABLE TABLET FEED TUBE (10:40)
[2019-10-23] MEDS: EZETIMIBE 10 MG TABLET FEED TUBE (10:40)
[2019-10-23] MEDS: lisinopriL 10 MG TABLET FEED TUBE (10:40)
[2019-10-23] MEDS: BACITRACIN OINTMENT 15 GM TUBE 1 APPLIC TOPICAL ×2 (10:40→21:55)
[2019-10-23] MEDS: MULTIVIT W/ IRON, MINERALS 15 ML LIQUID (*BKC) FEED TUBE (10:41)
[2019-10-23] MEDS: CLOPIDOGREL BISULFATE 75 MG TABLET FEED TUBE (10:41)
[2019-10-23] MEDS: LANSOPRAZOLE ORAL SUSP 30 MG/10 ML ORAL.SUSP FEED TUBE ×2 (10:43→21:55)
[2019-10-23 14:00] VITALS: BP 130/61; PULSE 66; RESP 22; TEMP 36.3; O2SAT 94
[2019-10-23] MEDS: ACETAMINOPHEN ELIXIR 325 MG/10.15 ML UDC 650 MG FEED TUBE (14:47)
[2019-10-23 22:00] VITALS: BP 118/56; PULSE 58; RESP 18; TEMP 36.6; O2SAT 100
[2019-10-24] MEDS: HEPARIN SODIUM 5,000 UNITS/ML VIAL 5000 UNITS SUB-Q ×3 (05:52→21:46)
[2019-10-24 06:00] VITALS: BP 139/63; PULSE 64; RESP 18; TEMP 36.5; O2SAT 99
[2019-10-24 06:11] LABS: Glucose Point of Care 111 (65-105)
[2019-10-24] MEDS: LORATADINE 10 MG TABLET PO (10:23)
[2019-10-24] MEDS: BACITRACIN OINTMENT 15 GM TUBE 1 APPLIC TOPICAL ×2 (10:23→21:46)
[2019-10-24] MEDS: lisinopriL 10 MG TABLET FEED TUBE (10:23)
[2019-10-24] MEDS: EZETIMIBE 10 MG TABLET FEED TUBE (10:23)
[2019-10-24] MEDS: ASPIRIN 81 MG CHEWABLE TABLET FEED TUBE (10:23)
[2019-10-24] MEDS: CLOPIDOGREL BISULFATE 75 MG TABLET FEED TUBE (10:23)
[2019-10-24] MEDS: MULTIVIT W/ IRON, MINERALS 15 ML LIQUID (*BKC) FEED TUBE (10:24)
[2019-10-24] MEDS: LANSOPRAZOLE ORAL SUSP 30 MG/10 ML ORAL.SUSP FEED TUBE ×2 (10:25→21:46)
--- NOTE | 2019-10-24 11:17 | PCNFU ---
Nutrition Follow-Up Complete: Swallowing difficulty related to CVA as evidenced by dx of dysphagia at previous hosptial Pt will tolerate diet order upon advancement Goal: progressing towards goal. Pt current nutrition is Jevity 1.5 240 ml q 4 hours. Nutrition recommendation: Agree Last recorded weight is 90.1 kg up from 90 kg on admit. Bowel Motility:+BM documented 10/22/19 Labs Reviewed:no new labs to report Meds Noted:Colace,MVI, Claritin Additional Notes: Patient is tolerating tube feedings of Jevity 1.5 q 4 hours with 150 ml free water flush q 4 hours. Plans for a MBS later this week. Will monitor tolerance and labs. Follow up T/F
[2019-10-24 14:00] VITALS: BP 111/63; PULSE 64; RESP 18; TEMP 36.3; O2SAT 98
--- NOTE | 2019-10-24 14:26 | WPDNEURORHBP ---
Subjective Date/time seen: 10/24/19 14:26 Interval history: this 74-year-old gentleman is here because of stroke having dysphagia and a left-sided hemiparesis is being fed with the PEG tube and is going to have a modified barium swallow in the next couple of days as we discussed in the team conference he is doing fairly well does not have fever chills sore throat nausea vomiting chest pain or shortness of breath Review of Systems Review of Systems: All systems reviewed & are unremarkable except as noted in HPI and below Functional Status Ambulation Ability Ability to Ambulate 10 Feet: Standby Assistance Ability to Ambulate 50 Feet With 2 Turns: Standby Assistance Ambulation Assistive Devices: Walker, Wheeled Transfers Ability Ability to Transfer In/Out of Chair: Contact Guard Exam Const: General: comfortable and no acute distress HENMT: General nose exam: Normal nares present Mouth: Yes moist mucous membranes Eyes: General: appearance normal, both eyes and all related structures Neck: Neck: supple and no JVD Resp: Effort & Inspection: normal respiratory effort Auscultation: clear to auscultation bilaterally Cardio: Rate: regular rate Rhythm: regular rhythm GI: GI Palp: Yes Soft to palpation Auscultation: normal bowel sounds Skin: General skin exam: normal color and no rashes or lesions noted Neuro: Other: patient is awake alert well oriented to time place and person has normal speech and language functions have palatal weakness on the right side and dysphagia along with bilateral weakness left side more so than the right however it has improved meaning the hemiparesis has improved quite a bit and is moving forward however dysphagia remains an issue and we will do the modified barium swallow to assess what this swallowing situation is Extrem: General: normal to inspection Psych: Mental Status: mental status grossly normal Objective Data Vital Signs Vital Signs: Vital Signs - 24 hr 10/23/19 22:00 10/24/19 06:00 Temperature 36.6 C 36.5 C Pulse Rate 58 L 64 Respiratory Rate 18 18 Blood Pressure 118/56 L 139/63 Pulse Oximetry 100 99 Intake/Output Intake/Output: Intake & Output 10/21/19 10/22/19 10/23/19 10/24/19 23:59 23:59 23:59 23:59 Intake Total 2440 1170 Output Total 1500 900 600 325 Balance 940 270 -600 -325 Meds/Results Medications: Active Medications Generic Name Dose Route Start Last Admin Trade Name Freq PRN Reason Stop Dose Admin Acetaminophen 650 mg 10/14/19 15:03 10/23/19 14:47 Tylenol Elixir FEED TUBE 650 mg Q6H PRN Administration Pain (Scale Score 1-3) Aspirin 81 mg 10/15/19 09:00 10/24/19 10:23 Aspirin Chewable FEED TUBE 81 mg DAILY MONALISA Administration Bacitracin 1 applic 10/20/19 21:00 10/24/19 10:23 Bacitracin Oint 15 Gm TOPICAL 1 applic Q12HR MONALISA Administration Clopidogrel Bisulfate 75 mg 10/15/19 09:00 10/24/19 10:23 Plavix FEED TUBE 75 mg DAILY MONALISA Administration Docusate Sodium 100 mg 10/15/19 18:45 Colace Liquid FEED TUBE Q12HR PRN Constipation Ezetimibe 10 mg 10/15/19 09:00 10/24/19 10:23 Zetia FEED TUBE 10 mg DAILY MONALISA Administration Emollient Ointment 1 applic 10/17/19 13:35 10/20/19 22:00 Vaseline TOPICAL 1 applic PRN PRN Administration Dry Lips Heparin Sodium (Porcine) 5,000 units 10/14/19 22:00 10/24/19 05:52 Heparin Sodium SUB-Q 5,000 units Q8HR MONALISA Administration Lansoprazole 30 mg 10/14/19 21:00 10/24/19 10:25 Prevacid Susp FEED TUBE 30 mg Q12HR MONALISA Administration Lisinopril 10 mg 10/15/19 09:00 10/24/19 10:23 Prinivil FEED TUBE 10 mg DAILY MONALISA Administration Loratadine 10 mg 10/24/19 09:00 10/24/19 10:23 Claritin PO 10 mg QAM MONALISA Administration Multivitamins/Minerals 15 ml 10/15/19 09:00 10/24/19 10:24 Centrum Liquid FEED TUBE 15 ml QAM MONALISA Administration Nitroglycerin 0.4 mg 10/14/19 15:32
[2019-10-24] MEDS: ACETAMINOPHEN ELIXIR 325 MG/10.15 ML UDC 650 MG FEED TUBE (21:49)
[2019-10-24 22:00] VITALS: BP 136/61; PULSE 70; RESP 18; TEMP 36.9; O2SAT 98
[2019-10-25] MEDS: HEPARIN SODIUM 5,000 UNITS/ML VIAL 5000 UNITS SUB-Q ×3 (05:52→21:49)
[2019-10-25 06:00] VITALS: BP 124/56; PULSE 76; RESP 18; TEMP 36.6; O2SAT 100
[2019-10-25 06:06] LABS: Glucose Point of Care 108 (65-105)
[2019-10-25] MEDS: lisinopriL 10 MG TABLET FEED TUBE (08:38)
[2019-10-25] MEDS: ASPIRIN 81 MG CHEWABLE TABLET FEED TUBE (08:38)
[2019-10-25] MEDS: CLOPIDOGREL BISULFATE 75 MG TABLET FEED TUBE (08:38)
[2019-10-25] MEDS: BACITRACIN OINTMENT 15 GM TUBE 1 APPLIC TOPICAL ×2 (08:38→21:49)
[2019-10-25] MEDS: LORATADINE 10 MG TABLET PO (08:38)
[2019-10-25] MEDS: EZETIMIBE 10 MG TABLET FEED TUBE (08:38)
[2019-10-25] MEDS: MULTIVIT W/ IRON, MINERALS 15 ML LIQUID (*BKC) FEED TUBE (08:39)
[2019-10-25] MEDS: LANSOPRAZOLE ORAL SUSP 30 MG/10 ML ORAL.SUSP FEED TUBE ×2 (08:39→21:49)
--- NOTE | 2019-10-25 12:17 | WPDNEURORHBP ---
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 he is improving slowly however dysphagia remains about the same he has to suction his saliva back and forth particularly in the bed and is asking for something for at home by reconstruction it and we will look into it otherwise is stable denies any headache nausea vomiting chest pain shortness of breath or any new neurological symptoms Review of Systems Review of Systems: All systems reviewed & are unremarkable except as noted in HPI and below Functional Status Ambulation Ability Ability to Ambulate 10 Feet: Standby Assistance Ability to Ambulate 50 Feet With 2 Turns: Standby Assistance Ambulation Assistive Devices: Walker, Wheeled Transfers Ability Ability to Transfer In/Out of Chair: Contact Guard Exam Const: General: comfortable and no acute distress HENMT: General nose exam: Normal nares present Mouth: Yes moist mucous membranes Other: dysphagia with right-sided parietal weakness remains the same Eyes: General: appearance normal, both eyes and all related structures Neck: Neck: supple and no JVD Resp: Effort & Inspection: normal respiratory effort Auscultation: clear to auscultation bilaterally Cardio: Rate: regular rate Rhythm: regular rhythm GI: GI Palp: Yes Soft to palpation Auscultation: normal bowel sounds Other: the PEG tube placement is fine and the site of the PEG is clean Skin: General skin exam: normal color and no rashes or lesions noted Neuro: Other: patient is awake alert well oriented time place and person left-sided weakness is improving the is here for the family training prior to discharge in next few days modified barium swallow will be done a day prior to discharge Extrem: General: normal to inspection Psych: Mental Status: mental status grossly normal Objective Data Vital Signs Vital Signs: Vital Signs - 24 hr 10/24/19 14:00 10/24/19 22:00 10/25/19 06:00 Temperature 36.3 C L 36.9 C 36.6 C Pulse Rate 64 70 76 Respiratory Rate 18 18 18 Blood Pressure 111/63 136/61 124/56 L Pulse Oximetry 98 98 100 Intake/Output Intake/Output: Intake & Output 10/22/19 10/23/19 10/24/19 10/25/19 23:59 23:59 23:59 23:59 Intake Total 1170 1170 1170 Output Total 123 194 8188 900 Balance 270 -600 95 270 Meds/Results Medications: Active Medications Generic Name Dose Route Start Last Admin Trade Name Freq PRN Reason Stop Dose Admin Acetaminophen 650 mg 10/14/19 15:03 10/24/19 21:49 Tylenol Elixir FEED TUBE 650 mg Q6H PRN Administration Pain (Scale Score 1-3) Aspirin 81 mg 10/15/19 09:00 10/25/19 08:38 Aspirin Chewable FEED TUBE 81 mg DAILY MONALISA Administration Bacitracin 1 applic 10/20/19 21:00 10/25/19 08:38 Bacitracin Oint 15 Gm TOPICAL 1 applic Q12HR MONALISA Administration Clopidogrel Bisulfate 75 mg 10/15/19 09:00 10/25/19 08:38 Plavix FEED TUBE 75 mg DAILY MONALISA Administration Docusate Sodium 100 mg 10/15/19 18:45 Colace Liquid FEED TUBE Q12HR PRN Constipation Ezetimibe 10 mg 10/15/19 09:00 10/25/19 08:38 Zetia FEED TUBE 10 mg DAILY MONALISA Administration Emollient Ointment 1 applic 10/17/19 13:35 10/20/19 22:00 Vaseline TOPICAL 1 applic PRN PRN Administration Dry Lips Heparin Sodium (Porcine) 5,000 units 10/14/19 22:00 10/25/19 05:52 Heparin Sodium SUB-Q 5,000 units Q8HR MONALISA Administration Lansoprazole 30 mg 10/14/19 21:00 10/25/19 08:39 Prevacid Susp FEED TUBE 30 mg Q12HR MONALISA Administration Lisinopril 10 mg 10/15/19 09:00 10/25/19 08:38 Prinivil FEED TUBE 10 mg DAILY MONALISA Administration Loratadine 10 mg 10/24/19 09:00 10/25/19 08:38 Claritin PO 10 mg QAM MONALISA Administration Multivitamins/Minerals 15 ml 10/15/19 09:00 10/25/19 08:39 Centrum Liquid FEED TUBE 15 ml Q
[2019-10-25 14:00] VITALS: BP 122/52; PULSE 58; RESP 16; TEMP 36.1; O2SAT 99
[2019-10-25 21:21] VITALS: BP 114/45; PULSE 73; RESP 16; TEMP 36.2; O2SAT 95
[2019-10-25] MEDS: ACETAMINOPHEN ELIXIR 325 MG/10.15 ML UDC 650 MG FEED TUBE (21:56)
[2019-10-26] VITALS (7 sets, daily range): BP systolic 117–124; BP diastolic 55–62; PULSE 57–86; RESP 18–20; TEMP 36.2–36.6; O2SAT 95–98
[2019-10-26] MEDS: HEPARIN SODIUM 5,000 UNITS/ML VIAL 5000 UNITS SUB-Q ×3 (05:55→21:37)
[2019-10-26 06:06] LABS: Glucose Point of Care 85 (65-105)
[2019-10-26] MEDS: MULTIVIT W/ IRON, MINERALS 15 ML LIQUID (*BKC) FEED TUBE (08:20)
[2019-10-26] MEDS: LANSOPRAZOLE ORAL SUSP 30 MG/10 ML ORAL.SUSP FEED TUBE ×2 (08:20→21:39)
[2019-10-26] MEDS: ASPIRIN 81 MG CHEWABLE TABLET FEED TUBE (08:21)
[2019-10-26] MEDS: BACITRACIN OINTMENT 15 GM TUBE 1 APPLIC TOPICAL ×2 (08:21→21:38)
[2019-10-26] MEDS: EZETIMIBE 10 MG TABLET FEED TUBE (08:21)
[2019-10-26] MEDS: LORATADINE 10 MG TABLET PO (08:21)
[2019-10-26] MEDS: CLOPIDOGREL BISULFATE 75 MG TABLET FEED TUBE (08:21)
[2019-10-26] MEDS: lisinopriL 10 MG TABLET FEED TUBE (08:21)
--- NOTE | 2019-10-26 10:53 | WPDNEURORHBP ---
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 The patient dysphagia remains roughly about the same his going to have a modified barium swallow tomorrow and discharge planning is for Wednesday he continues to have the issues of swallowing his own saliva needs continuous suction for which I have requested the healthcare administration internship for him to have a home suction probe set up and also he will need home O2 evaluation because of his need of oxygen particularly at night here in the rehab beside these complains the patient denies any headache nausea vomiting chest pain shortness of breath fever chills sore throat Review of Systems Review of Systems: All systems reviewed & are unremarkable except as noted in HPI and below Functional Status Ambulation Ability Ability to Ambulate 10 Feet: Standby Assistance Ability to Ambulate 50 Feet With 2 Turns: Standby Assistance Ambulation Assistive Devices: Walker, Wheeled Transfers Ability Ability to Transfer In/Out of Chair: Contact Guard Exam Const: General: comfortable and no acute distress HENMT: General nose exam: Normal nares present Mouth: Yes moist mucous membranes Eyes: General: appearance normal, both eyes and all related structures Neck: Neck: no JVD Carotids: bruit Resp: Effort & Inspection: normal respiratory effort Auscultation: clear to auscultation bilaterally Cardio: Rate: regular rate Rhythm: regular rhythm GI: GI Palp: Yes Soft to palpation Auscultation: normal bowel sounds Skin: General skin exam: normal color and no rashes or lesions noted Neuro: Other: patient is awake alert well oriented time place and person is speech and language functions are normal mild left-sided facial weakness along with the motor weakness of the left side which has significantly improved the because deficit the patient still has the dysphagia and need for the PEG tube feeding Extrem: General: normal to inspection Psych: Mental Status: mental status grossly normal Objective Data Vital Signs Vital Signs: Vital Signs - 24 hr 10/25/19 14:00 10/25/19 21:21 10/26/19 06:00 Temperature 36.1 C L 36.2 C L 36.3 C L Pulse Rate 58 L 73 68 Respiratory Rate 16 16 20 Blood Pressure 122/52 L 114/45 L 124/62 Pulse Oximetry 99 95 98 Intake/Output Intake/Output: Intake & Output 10/23/19 10/24/19 10/25/19 10/26/19 23:59 23:59 23:59 23:59 Intake Total 1170 2460 1170 Output Total 600 1075 1700 800 Balance -600 95 760 370 Meds/Results Medications: Active Medications Generic Name Dose Route Start Last Admin Trade Name Freq PRN Reason Stop Dose Admin Acetaminophen 650 mg 10/14/19 15:03 10/25/19 21:56 Tylenol Elixir FEED TUBE 650 mg Q6H PRN Administration Pain (Scale Score 1-3) Aspirin 81 mg 10/15/19 09:00 10/26/19 08:21 Aspirin Chewable FEED TUBE 81 mg DAILY MONALISA Administration Bacitracin 1 applic 10/20/19 21:00 10/26/19 08:21 Bacitracin Oint 15 Gm TOPICAL 1 applic Q12HR MONALISA Administration Clopidogrel Bisulfate 75 mg 10/15/19 09:00 10/26/19 08:21 Plavix FEED TUBE 75 mg DAILY MONALISA Administration Docusate Sodium 100 mg 10/15/19 18:45 Colace Liquid FEED TUBE Q12HR PRN Constipation Ezetimibe 10 mg 10/15/19 09:00 10/26/19 08:21 Zetia FEED TUBE 10 mg DAILY MONALISA Administration Emollient Ointment 1 applic 10/17/19 13:35 10/20/19 22:00 Vaseline TOPICAL 1 applic PRN PRN Administration Dry Lips Heparin Sodium (Porcine) 5,000 units 10/14/19 22:00 10/26/19 05:55 Heparin Sodium SUB-Q 5,000 units Q8HR MONALISA Administration Lansoprazole 30 mg 10/14/19 21:00 10/26/19 08:20 Prevacid Susp FEED TUBE 30 mg Q12HR MONALISA Administration Lisinopril 10 mg 10/15/19 09:00 10/26/19 08
--- NOTE | 2019-10-26 13:59 | HOMEO2EVAL ---
Home Oxygen Evaluation RC: Home Oxygen (O2) Evaluation Start: 10/26/19 11:27 Freq: ONCE Status: Active Protocol: RPE Activity Type Activity Date Activity User E-Sign Co-Sign Detail Recorded Client Recorded Date Recorded By Document 10/26/19 13:30 FLOR [email or web address] 10/26/19 13:57 FLOR Document 10/26/19 13:35 FOLR [id number] 10/26/19 13:57 FLOR Document 10/26/19 13:45 FLOR [email or web address] 10/26/19 13:57 FLOR 10/26/19 10/26/19 10/26/19 13:30 13:35 13:45 Home O2 Evaluation Test Phase Resting Exercise Resting Oxygen Delivery Room Air Room Air Room Air Pulse Oximetry (90-100 %) 96 95 96 Pulse Rate (60-100 beats/min) 78 86 77 Treatment Charges O2 Evaluation
--- NOTE | 2019-10-26 14:01 | PCRCNOTE ---
PT REQUESTING HOME O2 AT NIGHT.
--- NOTE | 2019-10-26 15:08 | PCRCNOTE ---
[facility] LINK ORDERED TO CHECK PT FOR DESATS ON ROOM AIR AT NIGHT TO QUALIFY HIM FOR NOCTURNAL O2 FOR HOME USE
[2019-10-26] MEDS: ACETAMINOPHEN ELIXIR 325 MG/10.15 ML UDC 650 MG FEED TUBE (18:04)
[2019-10-26] MEDS: GUAIFENESIN 200 MG/10 ML UDC FEED TUBE (21:38)
[2019-10-27] MEDS: GUAIFENESIN 200 MG/10 ML UDC FEED TUBE ×6 (01:44→21:41)
[2019-10-27] MEDS: HEPARIN SODIUM 5,000 UNITS/ML VIAL 5000 UNITS SUB-Q (05:43)
[2019-10-27 05:53] LABS: Glucose Point of Care 98 (65-105)
[2019-10-27 06:00] VITALS: BP 124/62; PULSE 62; RESP 20; TEMP 36.6; O2SAT 97
[2019-10-27] MEDS: EZETIMIBE 10 MG TABLET FEED TUBE (08:41)
[2019-10-27] MEDS: LANSOPRAZOLE ORAL SUSP 30 MG/10 ML ORAL.SUSP FEED TUBE (08:41)
[2019-10-27] MEDS: LORATADINE 10 MG TABLET PO (08:41)
[2019-10-27] MEDS: lisinopriL 10 MG TABLET FEED TUBE (08:42)
[2019-10-27] MEDS: ASPIRIN 81 MG CHEWABLE TABLET FEED TUBE (08:42)
[2019-10-27] MEDS: CLOPIDOGREL BISULFATE 75 MG TABLET FEED TUBE (08:42)
[2019-10-27] MEDS: MULTIVIT W/ IRON, MINERALS 15 ML LIQUID (*BKC) FEED TUBE (08:59)
[2019-10-27] MEDS: ACETAMINOPHEN ELIXIR 325 MG/10.15 ML UDC 650 MG FEED TUBE (10:15)
--- NOTE | 2019-10-27 11:38 | WPDNEURORHBP ---
Subjective Date/time seen: 10/27/19 11:38 Interval history: this 74-year-old gentleman is here after having had a stroke probably Monalisa brainstem level however undetermined to my knowledge had dysphagia and left hemiparesis however he has surprisingly past the modified barium swallow this morning and will be started with feedings along with the tube feedings he has also qualified for the home oxygen program because of hypoxia and desaturation at night he will need the sums suction equipment to clear the saliva from the back of his throat patient denies any headache nausea vomiting chest pain or shortness of breath fever chills or sore throat Review of Systems Review of Systems: All systems reviewed & are unremarkable except as noted in HPI and below Functional Status Ambulation Ability Ability to Ambulate 10 Feet: Contact Guard Ability to Ambulate 50 Feet With 2 Turns: Contact Guard Ambulation Assistive Devices: Walker, Wheeled Transfers Ability Ability to Transfer In/Out of Chair: Contact Guard Exam Const: General: comfortable and no acute distress HENMT: General nose exam: Normal nares present Mouth: Yes moist mucous membranes Eyes: General: appearance normal, both eyes and all related structures Neck: Neck: supple and no JVD Resp: Effort & Inspection: normal respiratory effort Auscultation: clear to auscultation bilaterally Cardio: Rate: regular rate Rhythm: regular rhythm GI: Other: the PEG tube site is clean and healthy Skin: General skin exam: normal color and no rashes or lesions noted Neuro: Other: the patient is awake and alert well oriented time present person has normal speech and language functions mild left-sided facial weakness right-sided palatal weakness has improved left-sided hemiparesis has improved and he has done well remarkably well and ready to be discharged tomorrow with the new instructions for the oral feedings with limitations of for consultation of from the dietitian and the speech therapist Extrem: General: normal to inspection Psych: Mental Status: mental status grossly normal Objective Data Vital Signs Vital Signs: Vital Signs - 24 hr 10/26/19 13:30 10/26/19 13:35 10/26/19 13:45 Temperature Pulse Rate 78 86 77 Respiratory Rate Blood Pressure Pulse Oximetry 96 95 96 10/26/19 14:00 10/26/19 21:40 10/26/19 21:56 Temperature 36.6 C 36.2 C L Pulse Rate 62 57 L Respiratory Rate 18 20 Blood Pressure 119/62 117/55 L Pulse Oximetry 96 95 98 10/27/19 06:00 Temperature 36.6 C Pulse Rate 62 Respiratory Rate 20 Blood Pressure 124/62 Pulse Oximetry 97 Intake/Output Intake/Output: Intake & Output 10/24/19 10/25/19 10/26/19 10/27/19 23:59 23:59 23:59 23:59 Intake Total 1170 2460 2340 1170 Output Total 1075 1700 800 900 Balance 95 760 1540 270 Meds/Results Medications: Active Medications Generic Name Dose Route Start Last Admin Trade Name Freq PRN Reason Stop Dose Admin Acetaminophen 650 mg 10/14/19 15:03 10/27/19 10:15 Tylenol Elixir FEED TUBE 650 mg Q6H PRN Administration Pain (Scale Score 1-3) Aspirin 81 mg 10/15/19 09:00 10/27/19 08:42 Aspirin Chewable FEED TUBE 81 mg DAILY MONALISA Administration Bacitracin 1 applic 10/27/19 07:12 Bacitracin Oint 15 Gm TOPICAL Q12HR PRN Wound Care Clopidogrel Bisulfate 75 mg 10/15/19 09:00 10/27/19 08:42 Plavix FEED TUBE 75 mg DAILY MONALISA Administration Docusate Sodium 100 mg 10/15/19 18:45 Colace Liquid FEED TUBE Q12HR PRN Constipation Ezetimibe 10 mg 10/15/19 09:00 10/27/19 08:41 Zetia FEED TUBE 10 mg DAILY MONALISA Administration Emollient Ointment 1 applic 10/17/19 13:35 10/20/19 22:00 Vaseline TOPICAL 1 applic PRN PRN Administration Dry Lips Guaifenesin 200 mg 10/26/19 21:00 10/27/19 08:41 Guaifenesin Liq FEED TUBE 200 mg Q4H MONALISA Administration Heparin Sodium (Porcine) 5,000 units 10/14/19 2
--- NOTE | 2019-10-27 12:32 | PCDIET ---
Nutrition Follow-Up Complete: Nutrition Diagnosis: Swallowing difficulty related to CVA as evidenced by dx of dysphagia at previous hosptial. Nutrition Goal: Patient will tolerate diet order upon advancement. Goal met. Diet has been advanced to heart healthy, easy to chew, following MBS. Patient has been tolerating Jevity 1.5 boluses (240mL every 4 hours with 150mL water flush every 4 hours). Patient eating lunch at time of visit and has eaten about half of penne pasta with marinara and a few bites of sherbet thus far. Discussed with patient that I will be recommending TID boluses if <50% of meal is consumed. Recommend encouraging oral intake, but providing 240mL Jevity 1.5 bolus with 150mL water flush if less than 50% of meal is consumed. If insurance does not cover Jevity 1.5, equivalent 1.5cal/mL or over the counter product (i.e. Ensure, Boost, etc.) would be appropriate. Last recorded weight is 90 kg which is stable. Bowel Motility: +BM today. Labs Reviewed: Glu (98) Meds Noted: Centrum, Colace and Miralax prn Additional Notes: Abdomen with incision s/p g-tube. No pressure ulcers noted. Nutrition Monitoring and Evaluation: Follow up every Wednesday/Wednesday.
--- NOTE | 2019-10-27 12:44 | PCSTNOTE ---
Please refer to the Modified Barium Swallow Evaluation in the EMR.
[2019-10-27 14:00] VITALS: BP 136/69; PULSE 70; RESP 18; TEMP 36.6; O2SAT 97
--- NOTE | 2019-10-27 14:26 | PC.NURSE ---
pt refused heparin shot. updated.
--- NOTE | 2019-10-27 15:08 | PCRCNOTE ---
NOCTURNAL OXYGEN AND SUCTION SET UP WITH IV AND RESPIRATORY CARE PHONE NUMBER . PT. TO CALL IV AND RESPIRATORY BEFORE DISCHARGE TO SET UP TIME FOR DELIVERY.
[2019-10-27 21:58] VITALS: BP 126/60; PULSE 64; RESP 20; TEMP 36.7; O2SAT 97
[2019-10-28 06:00] VITALS: BP 124/72; PULSE 70; RESP 20; TEMP 36.7; O2SAT 98
[2019-10-28] MEDS: GUAIFENESIN 200 MG/10 ML UDC FEED TUBE ×2 (06:10→08:44)
--- NOTE | 2019-10-28 07:35 | PC.NURSE ---
Patient requesting for doctor to provide a prescription for sleep study testing. Patient is discharging today. Patient questioned his blood thinner belly shot on discharge and was told it would be discontinued upon his discharge. Patient was also told that the doctor would be in later this date to write the particular prescription and his discharge would be later in the day. Patient was laying in bed and was told I would be back after my 8:00 meeting with his medications.
[2019-10-28] MEDS: ASPIRIN 81 MG CHEWABLE TABLET FEED TUBE (08:42)
[2019-10-28] MEDS: CLOPIDOGREL BISULFATE 75 MG TABLET FEED TUBE (08:42)
[2019-10-28] MEDS: lisinopriL 10 MG TABLET FEED TUBE (08:42)
[2019-10-28] MEDS: LORATADINE 10 MG TABLET PO (08:43)
[2019-10-28] MEDS: MULTIVIT W/ IRON, MINERALS 15 ML LIQUID (*BKC) FEED TUBE (08:43)
[2019-10-28] MEDS: EZETIMIBE 10 MG TABLET FEED TUBE (08:43)
--- NOTE | 2019-10-28 08:45 | PC.NURSE ---
Patient stated he had refused his morning Heparin injection.
[2019-10-28] MEDS: LANSOPRAZOLE ORAL SUSP 30 MG/10 ML ORAL.SUSP FEED TUBE (08:46)
[2019-10-28 14:00] VITALS: BP 134/67; PULSE 66; RESP 18; TEMP 35.9; O2SAT 99
--- NOTE | 2019-10-28 14:00 | PC.NURSE ---
Patient refused Heparin injection and Guaifenesin stated he didn't need either of them. Patient was becoming anxious due to not being discharged by this time. Patient was sitting up in bed.
[2019-10-28 15:00] VITALS: PULSE 68; RESP 18; O2SAT 99
--- NOTE | 2019-10-28 15:23 | WPDNEURORHBP ---
Subjective Date/time seen: 10/28/19 15:23 Interval history: patient is ready to be discharged home however he has been relatively noncompliant throughout his stay and relatively unhappy [place] and in spite of the instructions he tried to get up and fell and scraped his left hand fingers but denies any headache nausea vomiting chest pain shortness of breath or anything to suggest any significant injury to him he wants his sleep study done as an outpatient which I am going to order have told them is feeling well than the next 1 hour so he can be discharged and his can come and pick him up he should follow-up with the primary care physician as recommended and also follow-up with Neurology once he gets the sleep study done then I will be happy to refer him to a rack worker which he does not have at the present time he is eating fairly well and the PEG tube is for the safety net at this point Review of Systems Review of Systems: All systems reviewed & are unremarkable except as noted in HPI and below Functional Status Ambulation Ability Ability to Ambulate 10 Feet: Contact Guard Ability to Ambulate 50 Feet With 2 Turns: Contact Guard Ambulation Assistive Devices: Walker, Wheeled Transfers Ability Ability to Transfer In/Out of Chair: Contact Guard Exam Const: General: comfortable and no acute distress HENMT: General nose exam: Normal nares present Mouth: Yes moist mucous membranes Eyes: General: appearance normal, both eyes and all related structures Neck: Neck: supple and no JVD Resp: Effort & Inspection: normal respiratory effort Auscultation: clear to auscultation bilaterally Cardio: Rate: regular rate Rhythm: regular rhythm GI: GI Palp: Yes Soft to palpation Auscultation: normal bowel sounds Skin: General skin exam: normal color and no rashes or lesions noted Other: is small scrap on the left hand finger which is taped with the Band-Aid and there is no or nothing to suggest any bad injury to his fingers or the hand or anywhere in the body Neuro: Other: significantly improved dysphagia dysarthria and the left-sided hemiparesis Extrem: General: normal to inspection Other: except why already mentioned in the skin exam Psych: Mental Status: mental status grossly normal Objective Data Vital Signs Vital Signs: Vital Signs - 24 hr 10/27/19 21:58 10/28/19 06:00 Temperature 36.7 C 36.7 C Pulse Rate 64 70 Respiratory Rate 20 20 Blood Pressure 126/60 124/72 Pulse Oximetry 97 98 Intake/Output Intake/Output: Intake & Output 10/25/19 10/26/19 10/27/19 10/28/19 23:59 23:59 23:59 23:59 Intake Total 2460 2340 1530 980 Output Total 1700 800 900 Balance 760 1540 630 980 Meds/Results Medications: Active Medications Generic Name Dose Route Start Last Admin Trade Name Freq PRN Reason Stop Dose Admin Acetaminophen 650 mg 10/14/19 15:03 10/27/19 10:15 Tylenol Elixir FEED TUBE 650 mg Q6H PRN Administration Pain (Scale Score 1-3) Aspirin 81 mg 10/15/19 09:00 10/28/19 08:42 Aspirin Chewable FEED TUBE 81 mg DAILY MONALISA Administration Bacitracin 1 applic 10/27/19 07:12 Bacitracin Oint 15 Gm TOPICAL Q12HR PRN Wound Care Clopidogrel Bisulfate 75 mg 10/15/19 09:00 10/28/19 08:42 Plavix FEED TUBE 75 mg DAILY MONALISA Administration Docusate Sodium 100 mg 10/15/19 18:45 Colace Liquid FEED TUBE Q12HR PRN Constipation Ezetimibe 10 mg 10/15/19 09:00 10/28/19 08:43 Zetia FEED TUBE 10 mg DAILY MONALISA Administration Emollient Ointment 1 applic 10/17/19 13:35 10/20/19 22:00 Vaseline TOPICAL 1 applic PRN PRN Administration Dry Lips Guaifenesin 200 mg 10/26/19 21:00 10/28/19 13:35 Guaifenesin Liq FEED TUBE Not Given Q4H [facility] Heparin Sodium (Porcine) 5,000 units 10/14/19 22:00 10/28/19 13:36 Heparin Sodium SUB-Q Not Given Q8HR [facility] Lansoprazole 30 mg 10/14/19 21:00 10/28/19 08:46 Prevacid Susp FEE
[2019-10-28 15:40] VITALS: BP 134/67; PULSE 66; RESP 18; TEMP 35.9; O2SAT 99
--- NOTE | 2019-11-01 12:35 | PM.DS ---
DS: Diagnosis Admitting Diagnosis Admitting Diagnosis: Cerebral infarction, unspecified Discharge Diagnosis (1) Hypertension: Code(s): I10 - Essential (primary) hypertension Status: Acute (2) Coronary artery disease: Code(s): I25.10 - Atherosclerotic heart disease of [place] coronary artery without angina pectoris Status: Acute (3) History of atrial fibrillation: Code(s): Z86.79 - Personal history of other diseases of the circulatory system Status: Acute (4) Acute left hemiparesis: Code(s): G81.94 - Hemiplegia, unspecified affecting left nondominant side Status: Acute (5) Recurrent strokes: Code(s): I63.9 - Cerebral infarction, unspecified Status: Acute (6) S/P percutaneous endoscopic gastrostomy (PEG) tube placement: Code(s): Z93.1 - Gastrostomy status Status: Acute (7) Dysphagia: Code(s): R13.10 - Dysphagia, unspecified Status: Acute (8) Brainstem stroke: Code(s): I63.9 - Cerebral infarction, unspecified Status: Acute (9) Stroke: Code(s): I63.9 - Cerebral infarction, unspecified Status: Acute DS: Summary Hospital Course Reason for hospitalization: the patient was primarily admitted because of stroke which had affected his ability to swallow and left-sided hemiparesis a day prior to his discharge he was able to pass the modified barium swallow and was started on the diet and is feeding tube will be decreased to a significant degree the patient did remarkably well in over rehab and was able to achieve the following independent measures. Eating independent, oral hygiene independent, toileting independent, bathing supervision, upper body dressing independent, lower body dressing supervision, foot where independent, rolling in bed independent, sitting to lying independent, lying to sitting independently, sit to stand supervision, chair transfers supervision, toilet transfer supervision, car transfer supervision, walking 10 feet supervision, walking 50 feet the 2 turns supervision, walking 150 feet was unable to walking 10 feet uneven surfaces supervision carb are steps supervision for staff supervision, 12 steps patient was unable to give object supervision wheelchair 50 feet independent wheelchair and 50 feet independent patient was sent home with outpatient therapy no falls were recorded Time Spent with Patient Time attestation: Total time spent providing and/or coordinating discharge services: Exam Const: General: comfortable and no acute distress HENMT: General nose exam: Normal nares present Mouth: Yes dry mucous membranes Eyes: General: appearance normal, both eyes and all related structures Neck: Neck: supple and no JVD Resp: Effort & Inspection: normal respiratory effort Auscultation: clear to auscultation bilaterally Cardio: Rate: regular rate Rhythm: regular rhythm GI: GI Palp: Yes Soft to palpation Auscultation: normal bowel sounds Skin: General skin exam: normal color and no rashes or lesions noted Neuro: Other: patient remained quite lucid awake alert well oriented time place and person his dysarthria and dysphonia had significantly improved likewise dysphagia had improved is a left-sided hemiparesis had improved and achieved the goals of rehab rehab to a significant degree Extrem: General: normal to inspection Psych: Mental Status: mental status grossly normal DS: Data Data Completed and Pending Completed studies during hospitalization: on October 22, 2019 patient's white count within 1100 hemoglobin was 13.5 hematocrit 43.0 and a platelet count of [id number] the chemistries performed the same day revealed sodium 137 potassium 4.4 BUN of 13 creatinine of 0.6 and a glucose of 123 the calcium was 9.1 the abdominal x-rays a chest x-rays soft tissue neck CT and abdominal x-rays performed earlier during the course of hospitalization were fairly decent and unremarkable the reports are self explanatory
== END 2019-10-28 16:14 | disposition home or self-care (01) | DRG 57 ==
PROVIDERS: Admitting Provider Psychiatry & Neurology Neurology; Visit Provider Psychiatry & Neurology Neurology
DX: I69.391 Dysphagia following cerebral infarction (principal); I69.354 Hemiplegia and hemiparesis following cerebral infarction affecting left non-dominant side; C16.9 Malignant neoplasm of stomach, unspecified; I50.30 Unspecified diastolic (congestive) heart failure; I69.322 Dysarthria following cerebral infarction; I69.392 Facial weakness following cerebral infarction; R13.10 Dysphagia, unspecified; S60.418A Abrasion of other finger, initial encounter; W19.XXXA Unspecified fall, initial encounter; R09.02 Hypoxemia; E78.5 Hyperlipidemia, unspecified; I48.91 Unspecified atrial fibrillation; I25.10 Atherosclerotic heart disease of native coronary artery without angina pectoris; I25.2 Old myocardial infarction; I11.0 Hypertensive heart disease with heart failure; I65.01 Occlusion and stenosis of right vertebral artery; J38.00 Paralysis of vocal cords and larynx, unspecified; K21.9 Gastro-esophageal reflux disease without esophagitis; R00.1 Bradycardia, unspecified; Z87.891 Personal history of nicotine dependence; Z93.1 Gastrostomy status; Z95.5 Presence of coronary angioplasty implant and graft; Z79.82 Long term (current) use of aspirin; Z79.02 Long term (current) use of antithrombotics/antiplatelets; Z79.01 Long term (current) use of anticoagulants
CPT/HCPCS: 36415; 70490; 71045; 74018; 80048; 85025; 87081; 92507; 92523; 92526; 92610; 92611; 94618; 94762; 97110; 97116; 97161; 97165; 97530; 97535; 97542; A9270; J1644